=== PATIENT | male | born 1955 | race Two or more races ===

== ENCOUNTER 2024-10-23 21:27 | Emergency (ER) | payer MEDICARE, MEDICAID ==
[~2024-10-23] VITALS: Ht 193 cm; Wt 100.0 kg
[2024-10-23 21:27] VITALS: TEMP 98.6
[2024-10-23 22:40] LABS: Basophils # (auto) 0 10 ^3/uL (0-0.2); Basophils % (auto) 0.3 % (0.0-2.0); Eosinophils # (auto) 0.1 10 ^3/uL (0-0.8); Eosinophils % (auto) 0.7 % (0.0-7.0); Hematocrit 50.9 % (41.0-53.0); Hemoglobin 16.9 g/dL (13.5-17.5); Lymphocytes # (auto) 1.7 10 ^3/uL (0.4-5.4); Lymphocytes % (auto) 15.7 % (10.0-50.0); Mean Corpuscular Hgb Conc. 33.1 g/dL (32.0-36.0); Mean Corpuscular Volume 96.5 fL (80.0-100.0); Monocytes # (auto) 0.7 10 ^3/uL (0-1.3); Monocytes % (auto) 6.8 % (0.0-12.0); Neutrophils # (auto) 8.3 10 ^3/uL (1.6-8.6); Neutrophils % (auto) 76.5 % (37.0-80.0); Nucleated Red Blood Cells % 0.1 %; Platelet Count (auto) 225 10^3/uL (140-450); Red Blood Cells 5.27 10^6/uL (4.5-5.90); White Blood Cell 10.9 10^3/uL (4.4-10.8)
--- NOTE | 2024-10-23 22:45 | ED.PDOC ---
History of Present Illness HPI Comments 69 y/o overweight M, with a Hx of BPH, DM, and HLD, is BIBA for c/o watery diarrhea, today. Patient endorses on sudden and unprovoked onset of multiple diarrhea episodes at 1400, this evening. He reports on only recent significant event being his dosage increase for his Mounjaro from "750 units to 1050 units." Patient denies any nausea, vomiting, abdominal pain, bloody stools, or other associated symptoms or modifiers at this time. Chief Complaint: Diarrhea Time Seen by MD: 22:15 Reviewed Notes: Nurses Notes, Medications, Allergies Information Source: Patient, Emergency Med Personnel Mode of Arrival: EMS Severity: Moderate Timing: Hours Duration: Since onset Prehospital treatment: 12 Lead EKG, Clinic Office Coordinator Past Medical History PAST MEDICAL HISTORY: DM, High Lipids Past Medical History (Other): BPH Surgical History: Denies all surgeries Family History Family History: Unknown Social History Smoker: Non-Smoker Alcohol: Denies ETOH Use Drugs: Denies Drug Use Lives In: Home All Other Systems: Reviewed and Negative (Comprehensive systems review obtained and negative except for what is stated in the HPI.) Physical Exam General Appearance: No Apparent Distress, Obese HEENT: Normal ENT Inspection, Pharynx Normal, TMs Normal Neck: Full Range of Motion, Non-Tender, Normal, Normal Inspection Respiratory: Chest Non-Tender, Lungs Clear, No Accessory Muscle Use, No Respiratory Distress, Normal Breath Sounds Cardiovascular: No Edema, No JVD, No Murmur, No Gallop, Normal Peripheral Pulses, Regular Rate/Rhythm Breast Exam: Deferred Gastrointestinal: No Organomegaly, Non Tender, No Pulsatile Mass, Normal Bowel Sounds, Soft, Other (obese abdomen ) Genitalia: Deferred Pelvic: Deferred Rectal: Deferred Extremities: No calf tenderness, Normal capillary refill, Normal inspection, Normal range of motion, Non-tender, No pedal edema Musculoskeletal : Apperance: Normal Neurologic: Alert, nerve specialist II-XII nml as Tested, No Motor Deficits, Normal Affect, Normal Mood, No Sensory Deficits Cerebellar Function: Normal Reflexes: Normal Skin: Dry, Normal Color, Warm Lymphatic: No Adenopathy Was a procedure done? Was a procedure done?: No Differential Dx Considerations may include: viral syndrome, electrolyte imbalance, gastritis, gastroenteritis, inappropriate medication dosage, among others X-Ray, Labs, Meds, VS Vital Signs Date Time Temp Pulse Resp B/P (MAP) Pulse Ox O2 Delivery O2 Flow Rate FiO2 10/23/24 22:55 104 18 132/85 (101) 95 10/23/24 22:55 104 18 95 Room Air* 0 21 10/23/24 21:27 98.6 104 18 132/85 (101) 95 98.6 Lab Test 10/23/24 21:58 10/23/24 21:52 Range/Units White Blood Count 10.9 H 4.4-10.8 10^3/uL Red Blood Count 5.27 4.5-5.90 10^6/uL Hemoglobin 16.9 13.5-17.5 g/dL Hematocrit 50.9 41.0-53.0 % Mean Corpuscular Volume 96.5 80.0-100.0 fL Mean Corpuscular Hemoglobin 32.0 28.0-32.0 pg Mean Corpuscular Hemoglobin Concent 33.1 32.0-36.0 g/dL Red Cell Distribution Width 14.0 11.8-14.3 % Platelet Count 225 140-450 10^3/uL Mean Platelet Volume 7.7 6.9-10.8 fL Neutrophils (%) (Auto) 76.5 37.0-80.0 % Lymphocytes (%) (Auto) 15.7 10.0-50.0 % Monocytes (%) (Auto) 6.8 0.0-12.0 % Eosinophils (%) (Auto) 0.7 0.0-7.0 % Basophils (%) (Auto) 0.3 0.0-2.0 % Neutrophils # (Auto) 8.3 1.6-8.6 10 ^3/uL Lymphocytes # (Auto) 1.7 0.4-5.4 10 ^3/uL Monocytes # (Auto) 0.7 0-1.3 10 ^3/uL Eosinophils # (Auto) 0.1 0-0.8 10 ^3/uL Basophils # (Auto) 0 0-0.2 10 ^3/uL Nucleated Red Blood Cells 0.1 % Sodium Level 136 136-145 mmol/L Potassium Level 4.2 3.5-5.1 mmol/L Chloride Level 103 98-107 mmol/L Carbon Dioxide Level 25 20-31 mmol/L Anion Gap 8 5-15 Blood Urea Nitrogen 19 9-23 mg/dL Creatinine 1.07 0.700-1.30 mg/dL Glomerular Filtration Rate Calc 76 >90 mL/min BUN/Creatinine Ratio 17.8 10.0-20.0 Serum Glucose 143 H 74-106 mg/dL Calcium Level 11.1 H 8.7-10.4 mg/dL Magnesium Level 2.1 1.6-2.6 mg/dL Total Bilirubin 1.6 H 0.2-1.0 mg/dL Aspartate Amino Transferase (AST) 20 13-40 U/L Alanine Aminotransferase (ALT) 17 7-40 U/L Alkaline Phosphatase 77 46-116 U/L Total Protein 8.6 H 5.7-8.2 g/dL Albumin 5.1 H 3.2-4.8 g/dL Time of 1ST Reevaluation: 22:45 Reevaluation 1ST: Unchanged Patient Education/Counseling: Diagnosis, Treatment Family Education/Counseling: No Family Present Departure 1 Departure Time of Disposition: 01:00 Impression: Primary Impression: Diarrhea Additional Impression: Dehydration Disposition: 01 HOME / SELF CARE / HOMELESS Condition: Stable Discharged With: Self Critical Care Note Critical Care Time?: No Stability Stability form required: No Heart Score Heart Score: Heart Score Response (Comments) Value History N/A 0 EKG N/A 0 Age N/A 0 Risk Factors N/A 0 Troponin N/A 0 Total 0 I personally scribed for VARGAS BURNETT MD ([email or web address]) on 10/23/24 at 22:45. Electronically submitted by Artemio Butler ([email or web address]). VARGAS BURNETT MD Oct 23, 2024 22:45
[2024-10-23 22:46] LABS: Alanine Aminotransferase 17 U/L (7-40); Alkaline Phosphatase 77 U/L (46-116); Anion Gap 8 (5-15); Aspartate Aminotransferase 20 U/L (13-40); BUN/Creatinine Ratio 17.8 (10.0-20.0); Blood Urea Nitrogen 19 mg/dL (9-23); Carbon Dioxide 25 mmol/L (20-31); Chloride 103 mmol/L (98-107); Magnesium 2.1 mg/dL (1.6-2.6); Potassium 4.2 mmol/L (3.5-5.1); Sodium 136 mmol/L (136-145)
[2024-10-23 22:49] LABS: Albumin 5.1 g/dL (3.2-4.8); Bilirubin, Total 1.6 mg/dL (0.2-1.0); Calcium 11.1 mg/dL (8.7-10.4); Glucose 143 mg/dL (74-106); Total Protein 8.6 g/dL (5.7-8.2)
[2024-10-23 22:55] VITALS: BP 132/85; PULSE 104; RESP 18; O2SAT 95
[2024-10-23] MEDS: SODIUM CHLORIDE 0.9% 1,000 ML IVB ONE (23:52)
== END 2024-10-23 23:58 | disposition home or self-care (01) ==
LOC: EDBD 21:27 → ER 21:27 → EDSEX 21:27 → ER 23:30
DX: R19.7 Diarrhea, unspecified (principal); E86.0 Dehydration; E11.9 Type 2 diabetes mellitus without complications; E78.5 Hyperlipidemia, unspecified
CPT/HCPCS: 36415; 80053; 83735; 85025

== ENCOUNTER 2025-01-06 16:40 | Emergency (ER) | payer MEDICARE, MEDICAID ==
[~2025-01-06] VITALS: Ht 190.5 cm; Wt 122.0 kg
--- NOTE | 2025-01-06 17:38 | ED.PDOC ---
History of Present Illness HPI Comments 69 year old male with a Hx of DM, and High Lipids presents to the ED for the c/c of a Wound Check. Pt is noted to be sent to [facility] from [facility], for a Pic-line procedure & IV Fluids. Pt notes of his R big toe being infected at this point in time. Patient denies fever, SOB, chest pain, abdominal pain, nausea, vomiting, diarrhea, headache, dizziness. No other symptoms or modifying factors reported at this time. Patient is alert and oriented x4. Dr. Avelar requesting CBC BNP PT PTT, and administration of vancomycin 1.25 mg. Chief Complaint: Wound Check Time Seen by MD: 17:34 Reviewed Notes: Nurses Notes, Medications, Allergies Allergies: Coded Allergies: Ibuprofen (Verified Allergy, Unknown, 01/06/25) Information Source: Patient Mode of Arrival: Wheelchair Severity: Moderate Timing: Months Prehospital treatment: None Past Medical History PAST MEDICAL HISTORY: DM, High Lipids Surgical History: Denies all surgeries Family History Family History: Unknown Social History Smoker: Non-Smoker Alcohol: Denies ETOH Use Drugs: Denies Drug Use Lives In: Home Constitutional: denies: chills, diaphoresis, fatigue, fever, malaise, sweats, weakness, others EENTM: denies: blurred vision, double vision, ear bleeding, ear discharge, ear drainage, ear pain, ear ringing, eye pain, eye redness, hearing loss, mouth pain, mouth swelling, nasal discharge, nose bleeding, nose congestion, nose p ain, photophobia, tearing, throat pain, throat swelling, voice changes, others Respiratory: denies: cough, hemoptysis, orthopnea, SOB at rest, shortness of breath, SOB with excertion, stridor, wheezing, others Cardiovascular: denies: chest pain, dizzy spells, diaphoresis, Dyspnea on exertion, edema, irregular heart beat, left arm pain, lightheadedness, palpitations, PND, syncope, others Gastrointestinal: denies: abdomen distended, abdominal pain, blood streaked bowels, constipated, diarrhea, dysphagia, difficulty swallowing, hematemesis, melena, nausea, poor appetite, poor fluid intake, rectal bleeding, rectal pain, vomiting, others Genitourinary: denies: burning, dysuria, flank pain, frequency, hematuria, incontinence, penile discharge, penile sore, pain, testicle pain, testicle swelling, urgency, others Neurological: denies: dizziness, fainting, headache, left sided numbness, left sided weakness, numbness, paresthesia, pre-existing deficit, right sided numbness, right sided weakness, seizure, speech problems, tingling, tremors, weakness, others Musculoskeletal: denies: back pain, gout, joint pain, joint swelling, muscle pain, muscle stiffness, neck pain, others Integumetry: denies: bruises, change in color, change in hair/nails, dryness, laceration, lesions, lumps, rash, wounds, others Allergic/Immunocompromised: denies: Difficulty Healing, Frequent Infections, Hives, Itching, others Hematologic/Lymphatic: denies: anemia, blood clots, easy bleeding, easy bruising, swollen glands, others Endocrine: denies: excessive hunger, excessive sweating, excessive thirst, excessive urination, flushing, intolerance to cold, intolerance to heat, unexplained weight gain, unexplained weight loss, others Psychiatric: denies: anxiety, bipolar disorder, depression, hopeless, panic disorder, schizophrenia, sleepless, suicidal, others All Other Systems: Reviewed and Negative Physical Exam General Appearance: No Apparent Distress, Normal, Obese HEENT: Normal ENT Inspection, Pharynx Normal, TMs Normal Neck: Full Range of Motion, Non-Tender, Normal Respiratory: Chest Non-Tender, Lungs Clear, No Accessory Muscle Use, No Respiratory Distress, Normal Breath Sounds Cardiovascular: No Edema, No JVD, No Murmur, Normal Peripheral Pulses, Regular Rate/Rhythm Breast Exam: Deferred Gastrointestinal: Non Tender, No Pulsatile Mass, Normal Bowel Sounds, Soft Genitalia: Deferred Pelvic: Deferred Rectal: Deferred Extremities: No calf tenderness, Normal range of motion, Non-tender, No pedal edema Musculoskeletal : Location: Right Extremity Location: Foot, Great Toe (Infection with surrounding erythema noted to the big toe on right foot) Apperance: Normal Neurologic: Alert, No Motor Deficits, Normal Mood Cerebellar Function: Normal Reflexes: Normal Skin: Dry, Normal Color, Warm Lymphatic: No Adenopathy Was a procedure done? Was a procedure done?: No Differential Dx Considerations may include: Right foot cellulitis, osteomyelitis, sepsis X-Ray, Labs, Meds, VS Vital Signs Date Time Temp Pulse Resp B/P (MAP) Pulse Ox O2 Delivery O2 Flow Rate FiO2 01/06/25 17:34 97.4 57 18 127/83 (98) 95 97.4 X-Ray, Labs, Meds, VS Comment PICC line consultation placed, patient be admitted pending PICC line insertion He will be started on vancomycin 1.25 mg in emergency department Time of 1ST Reevaluation: 18:04 Reevaluation 1ST: Unchanged Patient Education/Counseling: Diagnosis, Treatment Family Education/Counseling: No Family Present SEPSIS Sepsis Screen Orders/Vitals/Labs Physician Orders Complete Blood Count (01/06/25 17:48) Basic Metabolic Panel (01/06/25 17:48) Blood Culture (01/06/25 17:48) Prothrombin Time W/ Inr (01/06/25 17:48) * Picc Line Consult (01/06/25 17:48) Vancomycin 1.25gm/250ml (01/06/25 18:00) Vital Signs Date Time Temp Pulse Resp B/P (MAP) Pulse Ox O2 Delivery O2 Flow Rate FiO2 01/06/25 17:34 97.4 57 18 127/83 (98) 95 97.4 Departure 1 Departure Time of Disposition: 18:10 Impression: Primary Impression: Cellulitis of right foot Disposition: ADMITTED INPATIENT Condition: Stable Discharged With: Self Critical Care Note Critical Care Time?: No Stability Stability form required: No Heart Score Heart Score: Heart Score Response (Comments) Value History N/A 0 EKG N/A 0 Age N/A 0 Risk Factors N/A 0 Troponin N/A 0 Total 0 I personally scribed for ALEXY MELO ([email or web address]) on 01/06/25 at 17:38. Electronically submitted by Ceasar Soria ([email or web address]). ALEXY MELO Jan 06, 2025 17:38
[2025-01-06 18:20] LABS: Basophils # (auto) 0.1 10 ^3/uL (0-0.2); Basophils % (auto) 0.9 % (0.0-2.0); Eosinophils # (auto) 0.2 10 ^3/uL (0-0.8); Eosinophils % (auto) 3.1 % (0.0-7.0); Hematocrit 43.1 % (41.0-53.0); Hemoglobin 14.4 g/dL (13.5-17.5); Lymphocytes # (auto) 1.4 10 ^3/uL (0.4-5.4); Lymphocytes % (auto) 19.9 % (10.0-50.0); Mean Corpuscular Hemoglobin 31.9 pg (28.0-32.0); Mean Corpuscular Hgb Conc. 33.4 g/dL (32.0-36.0); Mean Corpuscular Volume 95.3 fL (80.0-100.0); Monocytes # (auto) 0.5 10 ^3/uL (0-1.3); Monocytes % (auto) 7.9 % (0.0-12.0); Neutrophils # (auto) 4.7 10 ^3/uL (1.6-8.6); Neutrophils % (auto) 68.2 % (37.0-80.0); Platelet Count (auto) 209 10^3/uL (140-450); Red Blood Cells 4.53 10^6/uL (4.5-5.90); Red Cell Distribution Width 14.5 % (11.8-14.3); White Blood Cell 6.9 10^3/uL (4.4-10.8)
[2025-01-06 18:25] LABS: Chloride 107 mmol/L (98-107); Potassium 3.9 mmol/L (3.5-5.1); Sodium 139 mmol/L (136-145)
[2025-01-06 18:26] LABS: Anion Gap 9 (5-15); Carbon Dioxide 23 mmol/L (20-31)
[2025-01-06 18:31] LABS: Blood Urea Nitrogen 12 mg/dL (9-23)
[2025-01-06 18:33] LABS: Prothrombin Time 10.6 sec (9.3-11.8)
[2025-01-06 18:36] LABS: Glucose 112 mg/dL (74-106)
[2025-01-06] MEDS: VANCOMYCIN 1.25GM/250ML 250 ML IV ONE (20:22)
[2025-01-07 10:00] VITALS: PULSE 58; RESP 15; O2SAT 98
[2025-01-07] MEDS: LIDOCAINE 1% (LOCAL ANESTH.) PF 5ml SDV ID ONE (10:44)
[2025-01-07] MEDS: VANCOMYCIN 1.25GM/250ML 250 ML IV ONE (11:55)
[2025-01-07 13:00] VITALS: BP 127/68; PULSE 69; RESP 16; TEMP 97.8; O2SAT 94
[2025-01-07] MEDS ORDERED: SODIUM CHLOR 0.9% PF (SALINE LOCK) 10ML VIAL/SYR IV SCH (22:00)
== END 2025-01-07 15:24 | disposition home or self-care (01) ==
LOC: ER 16:40
DX: L03.115 Cellulitis of right lower limb (principal); E11.9 Type 2 diabetes mellitus without complications; E78.5 Hyperlipidemia, unspecified; Z88.6 Allergy status to analgesic agent; Z45.2 Encounter for adjustment and management of vascular access device; Z79.899 Other long term (current) drug therapy
CPT/HCPCS: 36415; 36569; 80048; 85025; 85610; 87040; 96365; 96366; 99285; C1751; J7050

== ENCOUNTER 2025-04-24 06:13 | Day surgery (SDC) | payer MEDICARE, MEDICAID ==
[~2025-04-24] VITALS: Ht 190.5 cm; Wt 123.4 kg
[~2025-04-24 06:13] MED LIST: ACET-2058 PO; ASCO500T11 PO; CHOL200064 PO; COLLPOW10 XX; DAPA1TAB4 PO; DESL5TAB OR; FINA5TAB4 PO; LEVO137T3 PO; LEVO500T91 PO; MELA3TAB27 PO; METF-489 PO; POTA-215 PO; PSYL0.5223 PO; ROSU5TAB5 PO; SACC250C15 PO; TAMS0.4C39 PO; TIOTCAP IN; [UNRECOGNIZED DRUG - CODE]; [UNRECOGNIZED DRUG - CODE] PO
[2025-04-24] MEDS ORDERED: LIDOCAINE 1% INJ PF 5ML AMP ONE (07:10)
[2025-04-24] MEDS ORDERED: GLYCOPYRROLATE 0.2 MG/ML 1ML VIAL ONE (07:10)
[2025-04-24] MEDS ORDERED: KETOROLAC TROMETH 30 MG/ML 1ML VIAL ONE (07:10)
[2025-04-24] MEDS ORDERED: ONDANSETRON HCL 4 MG/2 ML VIAL ONE (07:10)
[2025-04-24] MEDS ORDERED: PROPOFOL 10 MG/ML 20 ML IV ONE ×3 (07:10→08:02)
[2025-04-24] MEDS: ceFAZolin 2 GM/D5W50ml 50 ML IV ONE (07:15)
[2025-04-24] MEDS: BUPIVACAINE 0.25% INJ 50ML VIAL ONE (07:18)
[2025-04-24] MEDS: LIDOCAINE W/ EPINEPHRINE 1% 20ML VIAL ONE (07:18)
[2025-04-24] MEDS: ceFAZolin 1GM VL ONE (08:00)
[2025-04-24 08:07] VITALS: PULSE 57; RESP 15; TEMP 97.2
[2025-04-24] MEDS ORDERED: fentaNYL CITRATE 100 MCG/2 ML VL IV PRN (08:15)
[2025-04-24] MEDS ORDERED: ONDANSETRON HCL 4 MG/2 ML VIAL IV PRN (08:15)
[2025-04-24] MEDS ORDERED: FLUMAZENIL 0.1 MG/ML INJ 10ML MDV IV PRN (08:15)
[2025-04-24] MEDS ORDERED: hydrALAZINE HCL 20 MG/ML VL IV PRN (08:15)
[2025-04-24] MEDS ORDERED: HYDROmorphone HCL 2 MG/ML VL/or syr IV PRN (08:15)
[2025-04-24] MEDS ORDERED: NALOXONE HCL 0.4 MG/ML VIAL IV PRN (08:15)
--- NOTE | 2025-04-24 08:31 | POSTOP ---
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
[2025-04-24 08:52] VITALS: BP 115/67; PULSE 48; RESP 17; O2SAT 95
== END 2025-04-24 10:27 | disposition home or self-care (01) ==
LOC: SUR 06:13
PROVIDERS: ATTEND Podiatrist Foot & Ankle Surgery
DX: E11.69 Type 2 diabetes mellitus with other specified complication (principal); M86.8X7 Other osteomyelitis, ankle and foot; E11.40 Type 2 diabetes mellitus with diabetic neuropathy, unspecified; E78.00 Pure hypercholesterolemia, unspecified; Z98.41 Cataract extraction status, right eye; Z98.42 Cataract extraction status, left eye; Z98.890 Other specified postprocedural states; Z79.899 Other long term (current) drug therapy; Z79.84 Long term (current) use of oral hypoglycemic drugs
CPT/HCPCS: 28820; 82962; 87070; 87075; 87205; 88305; 88311; J0690; J1100; J1885; J2405; J2704; 87077; 87186; J3490